=== PATIENT | female | born 1960 | race Caucasian/White ===

== ENCOUNTER 2025-03-01 20:52 | Emergency (ER) | payer BC ==
[~2025-03-01] VITALS: Ht 170.2 cm; Wt 116.3 kg
[2025-03-01 20:55] VITALS: TEMP 97.3
[2025-03-01] MEDS ORDERED: LEVO50TA5 PO (21:04)
[2025-03-01 21:35] LABS: BASO # 0.1 10^3/uL (0.0-0.2); BASO % 0.9 % (0.0-1.0); EOS # 0.1 10^3/uL (0.0-0.5); EOS % 1.1 % (0.0-3.0); LYMPH # 1.8 10^3/uL (1.5-5.0); LYMPH % 19.9 % (24.0-44.0); MONO # 0.7 10^3/uL (0.0-0.8); MONO % 7.0 % (2.0-8.0); NEUTROPHILS # 6.6 10^3/uL (1.5-8.5); NEUTROPHILS % 70.9 % (36.0-66.0); PLATELET COUNT, AUTOMATED 321 10^3/uL (150-450)
[2025-03-01 21:39] LABS: KETONE, URINE AUTO RFX TRACE mg/dL (NEGATIVE); LEUKOCYTE ESTERASE UR AUTO RFX 2+ (NEGATIVE); MUCUS, URINE RFX SMALL (NEGATIVE); NITRITE, URINE AUTO RFX NEGATIVE (NEGATIVE); RBC, URINE AUTO RFX 6 /HPF (0-3); SQUAM EPITHELIAL CELL UR AURFX 0 /HPF (0-6); WBC, URINE AUTO RFX 46 /HPF (0-3)
[2025-03-01 22:01] LABS: ALT/SGPT 26.0 U/L (7.0-40); AST/SGOT 18.0 U/L (<34)
[2025-03-01] MEDS: ONDANSETRON 4MG 2ML VIAL IV ONE (22:19)
[2025-03-01] MEDS: MORPHINE 4 MG/ML 1 ML VIAL IV ONE (22:23)
[2025-03-02] MEDS: NS (Normal Saline) 0.9% 1,000 ML IV ONE (00:08)
[2025-03-02] MEDS: KETOROLAC 30 MG/ML 1 ML VIAL IV ONE (01:08)
[2025-03-02 02:00] VITALS: BP 150/70; O2SAT 98
[2025-03-02] MEDS: ONDANSETRON 4MG ORAL DISINTEGRATING TAB PO ONE (02:00)
[2025-03-02] MEDS ORDERED: KETO-204 PO (02:03)
[2025-03-02] MEDS ORDERED: MEDR4PAK PO (02:03)
[2025-03-02] MEDS ORDERED: BACT800T5 PO (02:03)
[2025-03-02] MEDS ORDERED: ONDA-282 PO (02:03)
[2025-03-02] MEDS ORDERED: PERC5TAB12 PO (02:03)
[2025-03-02] MEDS: OXYCODONE/APAP 5MG/325MG(HOME DOSE PACK) PO ONE (02:11)
== END 2025-03-02 02:19 | disposition home or self-care (01) ==
LOC: M ED 20:52
DX: N39.0 Urinary tract infection, site not specified (principal); M46.1 Sacroiliitis, not elsewhere classified; I48.91 Unspecified atrial fibrillation; E03.9 Hypothyroidism, unspecified; Z85.42 Personal history of malignant neoplasm of other parts of uterus; Z88.0 Allergy status to penicillin
CPT/HCPCS: 72131; 74176; 80047; 80076; 81001; 83605; 85025; 87086; 96361; 96374; 96375; 99284; J1100; J1885; J2405